=== PATIENT | male | born 1980 | race Caucasian/White ===

== ENCOUNTER 2018-03-22 22:37 | Emergency (ER) | payer BC ==
[~2018-03-22] VITALS: Ht 175.3 cm; Wt 65.8 kg
--- NOTE | 2018-03-22 22:56 | NUR ---
TP CAME FOR LACERATION/AVULATION EVAL, PLACED ON ER BED 7, AWAITING FOR ER MD EVAL.
[2018-03-22] MEDS ORDERED: LIDOCAINE /MPF 1% VIAL 5 ML VIAL ONE (23:46)
[2018-03-23] MEDS ORDERED: LIDOCAINE HCL/PF 1% 30 ML VIAL TP ONE
[2018-03-23] MEDS ORDERED: TDAP [DIPH/PERTUSSIS/TET] 0.5 ML VIAL IM ONE ×2 (00:13)
--- NOTE | 2018-03-23 00:32 | NUR ---
Patient discharged to home in stable condition. Lt index finger stiches done by er md Gipson, Written and verbal after care instructions given. Patient verbalizes understanding of instruction.
[2018-03-23 00:35] VITALS: BP 114/75
== END 2018-03-23 00:46 | disposition home or self-care (01) ==
LOC: ER 22:42
DX: S61.211A Laceration without foreign body of left index finger without damage to nail, initial encounter (principal); Z98.890 Other specified postprocedural states; Z60.2 Problems related to living alone; W26.8XXA Contact with other sharp object(s), not elsewhere classified, initial encounter; Y93.22 Activity, ice hockey; Y92.89 Other specified places as the place of occurrence of the external cause; Y99.8 Other external cause status
CPT/HCPCS: 90715; A6402; J3490